=== PATIENT | female | born 1985 | race Caucasian/White ===

== ENCOUNTER 2018-11-21 10:45 | Emergency (ER) | payer OTHER ==
[2018-11-21 11:03] VITALS: BP 116/72; PULSE 75; RESP 18; TEMP 98; O2SAT 95
[2018-11-21 11:04] VITALS: BMI 31.9
== END 2018-11-21 12:21 | disposition left against medical advice (07) ==
LOC: H.ER 10:45
DX: Z02.89 Encounter for other administrative examinations (principal)
CPT/HCPCS: 81025; 99281; LWBS0